=== PATIENT | female | born 1965 | race Caucasian/White ===

== ENCOUNTER 2025-06-10 09:06 | Inpatient (IN) | payer OTHER ==
[~2025-06-10] VITALS: Ht 167.6 cm; Wt 69.9 kg
[2025-06-10 08:53] VITALS: BP 122/82
[2025-06-10 10:06] LABS: COVID-19 AG NEGATIVE (NEGATIVE)
[2025-06-10 11:47] LABS: RH POSITIVE
[2025-06-12] MEDS ORDERED: METRONIDAZOLE/SODIUM CHLORIDE 500 MG/100 ML PIGGYBACK IV ONE (07:15)
[2025-06-12] MEDS ORDERED: CLINDAMYCIN PHOSPHATE 150 MG/ML (600mg) ONE ×2 (07:15→20:45)
[2025-06-12] MEDS ORDERED: SURGIFLO APPLICATOR 1 EACH APPL TOP ONE (09:12)
[2025-06-12] MEDS ORDERED: HEMOSTATIC MATRIX WITH THROMBIN KIT TOP ONE (09:12)
[2025-06-12] MEDS ORDERED: THROMBIN,HU/FIBRINOGEN/CALCIUM 4 ML SYRINGE TOP ONE (09:30)
[2025-06-12] MEDS ORDERED: VISTASEAL DUAL APPICATOR 1 EACH APPL TOP ONE (09:30)
[2025-06-12] MEDS ORDERED: 0.9 % SODIUM CHLORIDE 1,000 ML IV SCH (10:00)
[2025-06-12] MEDS ORDERED: ONDANSETRON HCL 2 MG/ML VIAL IV PRN (10:00)
[2025-06-12] MEDS ORDERED: MORPHINE SULFATE 4 MG/ML CARTRIDGE IV PRN (10:00)
[2025-06-12] MEDS ORDERED: MORPHINE SULFATE 4 MG/ML VIAL IV ONE (10:45)
[2025-06-12] MEDS ORDERED: KETOROLAC TROMETHAMINE 30 MG VIAL ONE (11:27)
[2025-06-12] MEDS ORDERED: KETOROLAC TROMETHAMINE 30 MG VIAL IV SCH (12:00)
[2025-06-12] MEDS ORDERED: ACETAMINOPHEN 500 MG GEL..CAP PO SCH (12:00)
[2025-06-12] MEDS ORDERED: CLINDAMYCIN PHOSPHATE 150 MG/ML (300mg) IV SCH (13:00)
[2025-06-12] MEDS ORDERED: SIMETHICONE 125 MG CAPSULE PO SCH (13:00)
[2025-06-12] MEDS ORDERED: CLINDAMYCIN PHOSPHATE 150 MG/ML (300mg) ONE (13:04)
[2025-06-12 13:56] VITALS: BP 115/72
[2025-06-12 14:00] LABS: BASO % 0.2 % (0.1-1.2); EOS # 0.01 (0.04-0.54); EOS % 0.1 % (0.7-7.0); LYMPH # 1.38 (1.18-3.74); LYMPH % 11.1 % (19.3-53.1); MEAN PLATELET VOLUME 9.30 fl (9.4-12.4); MONO # 0.76 (0.24-0.82); MONO % 6.1 % (4.7-12.5); NEUT # 10.21 (1.56-6.13); NEUT % 82.1 % (34.0-71.1); RED CELL DISTRIBUTION WIDTH 13.2 % (11.6-14.4)
[2025-06-12 14:53] LABS: BUN CREA RATIO 16.0 (7.0-25.0); CREATININE SERUM 0.69 mg/dL (0.55-1.02); GFR 87.38; GLUCOSE FASTING 96.0 mg/dL (65-100); OSMOLALITY SERUM 282.0 MOSM/KG (275-295)
[2025-06-12 16:00] VITALS: BP 116/65; O2SAT 98
[2025-06-12 20:00] VITALS: BP 109/68
[2025-06-12] MEDS ORDERED: DOCUSATE SODIUM 100MG CAP PO SCH ×2 (21:00)
[2025-06-12] MEDS ORDERED: FAMOTIDINE/PF 20 MG/2 ML VIAL IV PUSH SCH (21:00)
[2025-06-12] MEDS ORDERED: GABAPENTIN 300 MG CAPSULE PO SCH (21:00)
[2025-06-13] VITALS: BP 109/63; O2SAT 96
[2025-06-13 05:55] LABS: BASO % 0.6 % (0.1-1.2); EOS # 0.17 (0.04-0.54); EOS % 1.7 % (0.7-7.0); LYMPH # 1.09 (1.18-3.74); LYMPH % 11.0 % (19.3-53.1); MEAN PLATELET VOLUME 9.90 fl (9.4-12.4); MONO # 0.60 (0.24-0.82); MONO % 6.1 % (4.7-12.5); NEUT # 7.95 (1.56-6.13); NEUT % 80.3 % (34.0-71.1); RED CELL DISTRIBUTION WIDTH 13.3 % (11.6-14.4)
[2025-06-13 06:20] LABS: BUN CREA RATIO 15.0 (7.0-25.0); CREATININE SERUM 0.62 mg/dL (0.55-1.02); GFR 98.86; GLUCOSE FASTING 74.0 mg/dL (65-100); OSMOLALITY SERUM 280.0 MOSM/KG (275-295)
[2025-06-13] MEDS ORDERED: ENOXAPARIN SODIUM 40 MG/0.4 ML SYRINGE SUBCUTANEO SCH (09:00)
[2025-06-13 09:07] VITALS: BP 98/62
== END 2025-06-13 11:14 | disposition home or self-care (01) | DRG 741 ==
LOC: OB/GYN 06-12 05:00 → O/R 06-12 05:00 → SURH 06-12 07:00 → OB/GYN 06-12 11:28
PROVIDERS: ADMIT Obstetrics & Gynecology Gynecologic Oncology; ATTEND Obstetrics & Gynecology Gynecologic Oncology
PROC: 0UT74ZZ Resection of Bilateral Fallopian Tubes, Percutaneous Endoscopic Approach (ICD-10-PCS; 2025-06-12)
PROC: 0UT24ZZ Resection of Bilateral Ovaries, Percutaneous Endoscopic Approach (ICD-10-PCS; 2025-06-12)
PROC: 07BC4ZZ Excision of Pelvis Lymphatic, Percutaneous Endoscopic Approach (ICD-10-PCS; 2025-06-12)
PROC: 0DNW4ZZ Release Peritoneum, Percutaneous Endoscopic Approach (ICD-10-PCS; 2025-06-12)
PROC: 8E0W4CZ Robotic Assisted Procedure of Trunk Region, Percutaneous Endoscopic Approach (ICD-10-PCS; 2025-06-12)
PROC: 0UT94ZZ Resection of Uterus, Percutaneous Endoscopic Approach (ICD-10-PCS; principal; 2025-06-12 07:00)
DX: C54.1 Malignant neoplasm of endometrium (principal)
CPT/HCPCS: 58548; S2900